=== PATIENT | female | born 1995 | race Caucasian/White ===

== ENCOUNTER 2017-03-18 11:52 | Emergency (ER) | payer MEDICAID ==
[~2017-03-18] VITALS: Ht 172.7 cm; Wt 104.3 kg
[2017-03-18 12:43] VITALS: BP 118/71
== END 2017-03-18 14:18 | disposition home or self-care (01) ==
LOC: ER 11:59
DX: J01.90 Acute sinusitis, unspecified (principal); H92.02 Otalgia, left ear

== ENCOUNTER 2017-04-07 04:14 | Emergency (ER) | payer MEDICAID ==
[~2017-04-07] VITALS: Ht 172.7 cm; Wt 105.2 kg
[2017-04-07 04:18] VITALS: BP 123/77
== END 2017-04-07 05:44 | disposition left against medical advice (07) ==
LOC: ER 04:14
DX: M79.604 Pain in right leg (principal); Z53.21 Procedure and treatment not carried out due to patient leaving prior to being seen by health care provider; W57.XXXA Bitten or stung by nonvenomous insect and other nonvenomous arthropods, initial encounter; Y93.89 Activity, other specified; Y99.8 Other external cause status; Y92.89 Other specified places as the place of occurrence of the external cause